=== PATIENT | male | born 1970 | race Caucasian/White ===

== ENCOUNTER 2023-05-23 10:30 | Emergency (ER) | payer BC, SELFPAY ==
[2023-05-23] VITALS (7 sets, daily range): BP systolic 131–171; BP diastolic 93–109; BMI 30.5
[2023-05-23 11:33] LABS: % Basophils 0.6 % (0-2); % Eosinophils 0.2 % (0-6); % Immature Granulocytes 0.2 % (0-0.5); % Lymphocytes 12.5 % (20.5-51.1); % Monocytes 4.8 % (1.7-9.3); % Neutrophils 81.7 % (42.2-75.2); Absolute Lymphocytes 0.8 10^3/uL (1.2-3.4); Absolute Monocytes 0.3 10^3/uL (0.1-0.6); Absolute Neutrophils 5.1 10^3/uL (1.4-6.5); Hematocrit 46.2 % (39.0-52.0); Hemoglobin 16.2 g/dL (13.0-18.0); Mean Corp Hgb Conc. 35.1 g/dL (33.0-37.0); Mean Corpuscular Hgb 30.8 pg (27.0-31.0); Mean Corpuscular Volume 87.8 fL (80.0-94.0); Mean Platelet Volume 9.5 fL (7.4-10.4); Nucleated Red Blood Cells % 0 % (-); Platelet Count 270 10^3/uL (130-400); Red Blood Cell Count 5.26 10^6/uL (4.70-6.10); Red Cell Dist. Width 12.6 % (11.5-14.5); White Blood Cell Count 6.2 10^3/uL (4.8-10.8)
[2023-05-23 11:53] LABS: Blood Urea Nitrogen 16 mg/dl (9-20); Calcium 9.5 mg/dl (8.4-10.2); Carbon Dioxide 27 mmol/L (22-30); Chloride 106 mmol/L (98-107); Estimated Creatinine Clearance 103 ml/min; Glucose 111 mg/dl (70-99); Potassium 4.6 mmol/L (3.5-5.1); Sodium 139 mmol/L (135-145); eGFR > 60.00
--- NOTE | 2023-05-23 11:56 | ED.GENMED ---
History of Present Illness
General
Chief Complaint: Facial Problem
Source: patient
Exam Limitations: none
Time Seen by Provider: 05/23/23 11:02
Travel History
Have you had any contact with someone who has COVID-19?: No
Do you have any symptoms of coronavirus? Fever > 100 degrees, chills, cough, shortness of breath, sore throat, loss of taste or smell, muscle aches, or headache?: No
History of Present Illness
History of Present Illness:
53-year-old male complaining of tingling to the left side of the face neck and arm since yesterday. No weakness no visual issues speech issues. Slight lightheadedness when this started. No headache. No history of same. Under significant stress.
Past History
Past History
ED Past Medical History: GERD and Hypercholesterolemia
Social History
Tobacco: Non-smoker
Review of Systems
Review of Systems
All Other Systems: Not applicable
Respiratory: Reports no symptoms
Cardiac: Reports no symptoms
ABD/GI: Reports no symptoms
Phy Exam
Physical Exam
Physical Exam:
GENERAL: Alert and oriented in no apparent distress
EYE: Orbits normal. Extraocular muscles intact
NECK: Supple, no carotid bruit
ENT: Pharynx without erythema
CARDIAC: Regular rate and rhythm without any obvious murmurs.
LUNGS: Clear breath sounds,normal
ABDOMEN: Soft, without focal tenderness or distention
NEUROLOGICAL: Alert and oriented , cranial nerves II through XII intact. Speech normal. No drift. [id number]-cp-[id number] normal. Dfzu-ri-[id number] normal. Upper and lower extremity strength normal. Pinprick light touch intact. Graphesthesia intact.
SKIN: Warm and dry, no rash or lesion, no discoloration, skin intact.
MUSCULOSKELETAL: No edema,no deformity.Good color
PSYCH: Normal and appropriate interaction.
Course
Orders/Labs/Results
Orders:
Orders
05/23/23 10:44
Electrocardiogram (*1) Urgent
Reason for Study: Fatigue / Weakness
EKG- Treatment ONCE
05/23/23 11:12
CT Head & Neck Angio W/wo IV Urgent
Comment:
Reason For Exam: Left facial and arm paresthesias
Cardiac Monitoring- Treatment ONCE
05/23/23 11:13
Electrocardiogram (*1) Stat
Reason for Study: Other
Other Reason for Exam: neuro symptoms
EKG- Treatment ONCE
05/23/23 11:22
Basic Metabolic Panel Urgent
Complete Blood Count/With Diff Urgent
Troponin I Urgent
Abnormal Lab Results
05/23/23
11:22
Absolute Lymphs (auto) 0.8 L 10^3/uL
(1.2-3.4)
Neutrophils % 81.7 H %
(42.2-75.2)
Lymphocytes % 12.5 L %
(20.5-51.1)
Glucose 111 H mg/dl
(70-99)
05/23/23 11:22
05/23/23 11:22
Vital Signs
Initial and Last Documented VS:
Initial Vital Signs
Temp Pulse Resp BP Pulse Ox
98.7 F 89 18 131/93 99
05/23/23 10:40 05/23/23 10:40 05/23/23 10:40 05/23/23 10:40 05/23/23 10:40
Last Documented Vital Signs
Temp Pulse Resp BP Pulse Ox
98.7 F 80 16 163/96 97
05/23/23 10:40 05/23/23 11:34 05/23/23 11:34 05/23/23 12:00 05/23/23 13:15
MDM/Problems Addressed
MDM/Problems Addressed:
Patient with left-sided facial and arm paresthesias although he he stated it felt normal to light touch. States it felt 'more internal '. Admits to significant stress. However neurologic exam is perfectly normal he has no carotid bruit workup in
progress.
*Radiology
Radiology exam reviewed: radiology read reviewed (Negative CT and CT angiography)
*Pulse Oximetry
Patient hypoxic: no
*EKG
Interpreted by ED Provider?: Yes
Interpretation: normal
Comparison EKG: no changes
Heart Rate: 80
Rate: normal
Rhythm: sinus
[place]: normal axis
QRS Pattern: normal QRS
Ischemia: no ischemia
*Critical Care Note
Total Time (30-74mins, 75-104mins- exclusive of procedures): Not Applicable
Update Note
Update Note:
Patient's workup and exam unremarkable. Possible paresthesias. Stable for discharge to follow-up. Not consistent with a cardiac complaint. Highly doubt stroke given normal neuroexam, lack of risk factors, negative imaging
ED Attending Note
-
Portions of this chart may have been created with voice recognition software.� Occasional wrong word or��sound alike� substitutions may have occurred due to the inherent limitations of voice recognition software.
Discharge Plan
Departure
Patient Disposition: Home (Routine Discharge)
Date of Disposition: 05/23/23
Time of Disposition: 13:31
Patient with high blood pressure during this ER visit?: Yes
Discharge Problem:
Left facial/arm paresthesias
Instructions: Paresthesia (DC), BLOOD PRESSURE
Referrals:
Malcolm Guerra PA-C [Family Provider] - Follow up in 2-3 days
Activity Restrictions/Additional Instructions:
Follow-up with your primary physician
Return with any worsening symptoms or any new symptoms including weakness speech issues visual issues unusual headache etc.
Interventions
Interventions:
*Risk Screen - Suicide Last Done: 05/23/23 10:42
*General Assessment Last Done: 05/23/23 10:42
*Neglect/Abuse Screening Last Done: 05/23/23 10:42
ED- Fall Risk Assessment Last Done: 05/23/23 11:32
*ED COVID-19 Vaccine History Last Done: 05/23/23 10:42
ED- Neurological Assessment Last Done: 05/23/23 11:32
ED-Skin Assessment Last Done: 05/23/23 11:32
[2023-05-23 12:02] LABS: Troponin I < 0.012 ng/ml
== END 2023-05-23 13:49 | disposition home or self-care (01) ==
LOC: EMR 10:30
PROVIDERS: EMERGENCY PHYSICIAN Emergency Medicine; FAMILY PHYSICIAN Physician Assistant Medical
DX: R20.2 Paresthesia of skin (principal); R42 Dizziness and giddiness; R03.0 Elevated blood-pressure reading, without diagnosis of hypertension
CPT/HCPCS: 99285; 70496; 70498; 80048; 84484; 85025; 93005; Q9967

== ENCOUNTER → 2024-03-16 06:28 | Outpatient (REF) | payer BC, SELFPAY ==
[2024-03-16 07:34] LABS: % Basophils 0.6 % (0-2); % Immature Granulocytes 0.6 % (0-0.5); % Lymphocytes 21.1 % (20.5-51.1); % Monocytes 7.3 % (1.7-9.3); % Neutrophils 68.4 % (42.2-75.2); Absolute Eosinophils 0.1 10^3/uL (0-0.7); Absolute Lymphocytes 1.4 10^3/uL (1.2-3.4); Absolute Monocytes 0.5 10^3/uL (0.1-0.6); Absolute Neutrophils 4.5 10^3/uL (1.4-6.5); Hematocrit 50.9 % (39.0-52.0); Hemoglobin 17.1 g/dL (13.0-18.0); Mean Corp Hgb Conc. 33.6 g/dL (33.0-37.0); Mean Corpuscular Hgb 30.9 pg (27.0-31.0); Mean Corpuscular Volume 91.9 fL (80.0-94.0); Mean Platelet Volume 9.4 fL (7.4-10.4); Nucleated Red Blood Cells % 0 % (-); Platelet Count 324 10^3/uL (130-400); Red Blood Cell Count 5.54 10^6/uL (4.70-6.10); Red Cell Dist. Width 12.3 % (11.5-14.5); White Blood Cell Count 6.5 10^3/uL (4.8-10.8)
[2024-03-16 08:21] LABS: ALT (SGPT) 49 U/L (0-50); AST (SGOT) 43 U/L (17-59); Albumin 4.7 g/dl (3.5-5.0); Alkaline Phosphatase 50 U/L (38-126); Blood Urea Nitrogen 23 mg/dl (9-20); Calcium 9.8 mg/dl (8.4-10.2); Carbon Dioxide 28 mmol/L (22-30); Chloride 104 mmol/L (98-107); Glucose 104 mg/dl (70-99); HDL Cholesterol 37 mg/dl; LDL Cholesterol, Calculated 123 mg/dl; Potassium 4.8 mmol/L (3.5-5.1); Sodium 144 mmol/L (135-145); Total Bilirubin 1.1 mg/dl (0.2-1.3); Total Cholesterol 208 mg/dl (50-199); Total Protein 7.4 g/dl (6.3-8.2); Triglyceride 242 mg/dl (10-149); Very Low Density Lipoprotein 48 mg/dl (0-30); eGFR > 60.00
[2024-03-16 08:49] LABS: PSA, Total - Screen 0.79 ng/ml (0.0-4.0); TSH 2.39 uIU/ml (0.47-4.68)
[2024-03-16 10:12] LABS: Glycohemoglobin (HgbA1c) 5.6 % (4.0-5.6)
== END ==
LOC: REG 06:28
PROVIDERS: ATTENDING PHYSICIAN Family Medicine
DX: E78.2 Mixed hyperlipidemia (principal); R73.01 Impaired fasting glucose; Z00.00 Encounter for general adult medical examination without abnormal findings
CPT/HCPCS: 36415; 80053; 80061; 83036; 84443; 85025; G0103

== ENCOUNTER → 2024-05-09 13:57 | Outpatient (REF) | payer BC, SELFPAY | LOC: HWRAD 13:57 | PROVIDERS: ATTENDING PHYSICIAN Emergency Medicine | DX: J10.1 Influenza due to other identified influenza virus with other respiratory manifestations (principal); R05.1 Acute cough | CPT/HCPCS: 71046 ==

== ENCOUNTER 2024-06-20 06:16 | Day surgery (SDC) | payer BC, SELFPAY | END 2024-06-20 09:51 | disposition home or self-care (01) | LOC: GI 06:16 | PROVIDERS: ATTENDING PHYSICIAN Surgery | DX: Z12.11 Encounter for screening for malignant neoplasm of colon (principal); K57.30 Diverticulosis of large intestine without perforation or abscess without bleeding; K64.9 Unspecified hemorrhoids; D12.3 Benign neoplasm of transverse colon; K63.89 Other specified diseases of intestine; Z86.0100 Personal history of colon polyps, unspecified | CPT/HCPCS: 45380; 88305 ==

== ENCOUNTER → 2024-10-16 07:42 | Outpatient (REF) | payer BC, SELFPAY ==
[2024-10-16 09:01] LABS: ALT (SGPT) 59 U/L (0-50); AST (SGOT) 44 U/L (17-59); Albumin 4.7 g/dl (3.5-5.0); Alkaline Phosphatase 45 U/L (38-126); Blood Urea Nitrogen 19 mg/dl (9-20); Calcium 9.7 mg/dl (8.4-10.2); Carbon Dioxide 29 mmol/L (22-30); Chloride 107 mmol/L (98-107); Glucose 93 mg/dl (70-99); HDL Cholesterol 36 mg/dl; LDL Cholesterol, Calculated 90 mg/dl; Potassium 4.5 mmol/L (3.5-5.1); Sodium 142 mmol/L (135-145); Total Protein 7.2 g/dl (6.3-8.2); Very Low Density Lipoprotein 47 mg/dl (0-30); eGFR > 60.00
[2024-10-16 10:27] LABS: Urine Character Clear (Clear)
== END ==
LOC: REG 07:42
PROVIDERS: ATTENDING PHYSICIAN Family Medicine
DX: E78.2 Mixed hyperlipidemia (principal); Z00.00 Encounter for general adult medical examination without abnormal findings; R73.01 Impaired fasting glucose
CPT/HCPCS: 36415; 80053; 80061; 81003

== ENCOUNTER → 2025-03-23 07:16 | Outpatient (REF) | payer BC, SELFPAY ==
[2025-03-23 08:28] LABS: Hematocrit 48.8 % (39.0-52.0); Hemoglobin 16.6 g/dL (13.0-18.0); Mean Corp Hgb Conc. 34.0 g/dL (33.0-37.0); Mean Corpuscular Volume 90.5 fL (80.0-94.0); Nucleated Red Blood Cells % 0 % (-); Platelet Count 279 10^3/uL (130-400); Red Cell Dist. Width 12.7 % (11.5-14.5)
[2025-03-23 08:59] LABS: ALT (SGPT) 43 U/L (0-50); AST (SGOT) 35 U/L (17-59); Albumin 4.6 g/dl (3.5-5.0); Alkaline Phosphatase 56 U/L (38-126); Blood Urea Nitrogen 20 mg/dl (9-20); Calcium 9.4 mg/dl (8.4-10.2); Chloride 104 mmol/L (98-107); Glucose 101 mg/dl (70-99); HDL Cholesterol 32 mg/dl; LDL Cholesterol, Calculated 90 mg/dl; Potassium 4.7 mmol/L (3.5-5.1); Sodium 140 mmol/L (135-145); Total Protein 7.0 g/dl (6.3-8.2); Very Low Density Lipoprotein 44 mg/dl (0-30); eGFR > 60.00
[2025-03-23 09:07] LABS: Carbon Dioxide 31 mmol/L (22-30)
[2025-03-23 09:26] LABS: PSA, Total - Screen 0.62 ng/ml (0.0-4.0); TSH 1.88 uIU/ml (0.47-4.68)
[2025-03-23 10:04] LABS: Glycohemoglobin (HgbA1c) 5.6 % (4.0-5.9)
== END ==
LOC: REG 07:16
PROVIDERS: ATTENDING PHYSICIAN Family Medicine
DX: Z00.00 Encounter for general adult medical examination without abnormal findings (principal); R74.01 Elevation of levels of liver transaminase levels; E78.2 Mixed hyperlipidemia
CPT/HCPCS: 36415; 80053; 80061; 82248; 83036; 84443; 85025; G0103